=== PATIENT | male | born 1960 | race Caucasian/White ===

== ENCOUNTER 2020-06-08 08:35 | Day surgery (SDC) | payer OTHER ==
[~2020-06-08 08:35] MED LIST: Lactated Ringers 1,000 ML IV SCH; Lidocaine 2% 5 ML SDV ONE; Midazolam 1 MG/ML 2 ML SDV ONE; Propofol 200 MG/20 ML SDV ONE; fentaNYL 100 MCG/2 ML SDV ONE
--- NOTE | 2020-06-08 09:17 | PCM.PREANE ---
Preanesthetic Assessment - Anesthesia/Transfusion/Family Hx Anesthesia History: Prior Anesthesia Without Reaction Family History of Anesthesia Reaction: No Transfusion History: No Prior Transfusion(s) Intubation History: Unknown - Review of Systems General: No Symptoms Pulmonary: No Symptoms Cardiovascular: No Symptoms Gastrointestinal: Abdominal Pain, Other (change in bowel habbits) Neurological: No Symptoms Other: Reports: None - Physical Assessment Vital Signs: Last Vital Signs Temp 36.3 C 06/08/20 08:47 Pulse 62 06/08/20 08:47 Resp 16 06/08/20 08:47 BP 178/81 H 06/08/20 08:47 Pulse Ox 98 06/08/20 08:47 Height: 6 ft Weight: 82.1 kg ASA Class: 2 Mental Status: Alert & Oriented x3 Airway Class: Mallampati = 2 Dentition: Reports: Normal Dentition Thyro-Mental Finger Breadths: 3 Mouth Opening Finger Breadths: 3 ROM/Head Extension: Full Lungs: Clear to Auscultation, Normal Respiratory Effort Cardiovascular: Regular Rate, Regular Rhythm - Allergies Allergies/Adverse Reactions: Allergies Allergy/AdvReac Type Severity Reaction Status Date / Time No Known Allergies Allergy Verified 06/02/20 10:32 - Blood Blood Available: No - Anesthesia Plan Pre-Op Medication Ordered: None - Acknowledgements Anesthesia Type Planned: MAC Pt an Appropriate Candidate for the Planned Anesthesia: Yes Alternatives and Risks of Anesthesia Discussed w Pt/Guardian: Yes Pt/Guardian Understands and Agrees with Anesthesia Plan: Yes PreAnesthesia Questionnaire Other HEENT History: wears glasses, left vitreous detachment Cardiovascular History: Reports: None Respiratory History: Reports: None Gastrointestinal History: Reports: Other (See Below) Other Gastrointestinal History: chronic epigastric pain Genitourinary History: Reports: None Musculoskeletal History: Reports: Back Pain, Chronic Neurological History: Reports: None Psychiatric History: Reports: None Endocrine/Metabolic History: Reports: None Hematologic History: Reports: None Immunologic History: Reports: None Oncologic (Cancer) History: Reports: None Dermatologic History: Reports: None - Infectious Disease History Infectious Disease History: Reports: None - Past Surgical History Head Surgeries/Procedures: Reports: None HEENT Surgical History: Reports: None Cardiovascular Surgical History: Reports: None Respiratory Surgical History: Reports: None GI Surgical History: Reports: Colonoscopy (many years ago) Male Surgical History: Reports: Other (See Below) Other Male Surgeries/Procedures: orchiectomy for testicular cancer Endocrine Surgical History: Reports: None Neurological Surgical History: Reports: C-Spine Other Neurological Surgeries/Procedures: cervical fusion (ACDF) Musculoskeletal Surgical History: Reports: None Oncologic Surgical History: Reports: None Dermatological Surgical History: Reports: None - SUBSTANCE USE Tobacco Use Status *Q: Current Every Day Tobacco User (1/2 ppd) Tobacco Use Within Last Twelve Months: Cigarettes Recreational Drug Use History: No - HOME MEDS Home Medications: Home Meds Ibuprofen 400 mg PO ASDIRECTED PRN 06/02/20 [History] Sildenafil Citrate 100 mg PO ASDIRECTED PRN 06/02/20 [History] - CURRENT (IN HOUSE) MEDS Current Meds: Current Medications Lactated Ringer's (Ringers, Lactated) 1,000 mls @ 125 mls/hr IV ASDIRECTED BRANDT Last Admin: 06/08/20 09:00 Dose: 125 mls/hr Documented by: Discontinued Medications Fentanyl (Sublimaze) Confirm Administered Dose 100 mcg .ROUTE .STK-MED ONE Stop: 06/08/20 07:08 Lidocaine (Xylocaine-Mpf 2%) Confirm Administered Dose 5 ml .ROUTE .STK-MED ONE Stop: 06/08/20 07:08 Midazolam HCl (Versed 1 Mg/Ml) Confirm Administered Dose 2 mg .ROUTE .STK-MED ONE Stop: 06/08/20 07:08 Propofol (Diprivan 20 Ml) Confirm Administered Dose 400 mg .ROUTE .STK-MED ONE Stop: 06/08/20 07:08
[2020-06-08] MEDS ORDERED: Glycopyrrolate 0.2 MG/ML SDV ONE ×2 (10:35→10:44)
[2020-06-08] MEDS ORDERED: Propofol 200 MG/20 ML SDV ONE (10:55)
--- NOTE | 2020-06-08 11:43 | PCM.OPNOTE ---
- General Post-Op/Procedure Note Date of Surgery/Procedure: 06/08/20 Operative Procedure(s): egd w bx and colonoscopy w snare polypectomy Findings: see [id number] Pre Op Diagnosis: abd pain and change in bowel habits Post-Op Diagnosis: Same Anesthesia Technique: Moderate Sedation Primary Surgeon: Cheng James Pathology: 1) sessile polyps 2 - 3 mm at distance 40cm and 60cm when scope went in; pedunculated 5 mm polyp at 40cm when scope went in 2) random colon bx 3) egd bx Complications: None Condition: Good
--- NOTE | 2020-06-08 11:56 | PCM.POSTAN ---
POST ANESTHESIA ASSESSMENT - MENTAL STATUS Mental Status: Alert, Oriented - VITAL SIGNS Vital Signs: Last Vital Signs Temp 36.3 C 06/08/20 08:47 Pulse 52 L 06/08/20 11:50 Resp 15 06/08/20 11:50 BP 102/63 06/08/20 11:50 Pulse Ox 98 06/08/20 11:50 - RESPIRATORY Respiratory Status: Respiratory Rate WNL, Airway Patent, O2 Saturation Stable - CARDIOVASCULAR CV Status: Pulse Rate WNL, Blood Pressure Stable - GASTROINTESTINAL GI Status: No Symptoms - PAIN Pain Score: 0 - POST OP HYDRATION Hydration Status: Adequate & Stable - OBSERVATIONS Free Text/Narrative:: No anesthesia problems
--- NOTE | 2020-06-08 12:08 | PCM48HPAN ---
Post Anesthesia Note - EVALUATION WITHIN 48HRS OF ANESTHETIC Vital Signs in Normal Range: Yes Patient Participated in Evaluation: Yes Respiratory Function Stable: Yes Airway Patent: Yes Cardiovascular Function Stable: Yes Hydration Status Stable: Yes Pain Control Satisfactory: Yes Nausea and Vomiting Control Satisfactory: Yes Mental Status Recovered: Yes Vital Signs: Last Vital Signs Temp 36.3 C 06/08/20 11:57 Pulse 53 L 06/08/20 11:57 Resp 14 06/08/20 11:57 BP 109/76 06/08/20 11:57 Pulse Ox 97 06/08/20 11:57 - COMMENTS/OBSERVATIONS Free Text/Narrative:: No anesthesia problems
--- NOTE | 2020-06-08 18:45 | OR ---
SURGEON: Cheng James MD DATE OF PROCEDURE: 06/08/2020 PREOPERATIVE DIAGNOSES: Abdominal pain and change in bowel habit. PROCEDURES PERFORMED: 1. Esophagogastroduodenoscopy with biopsy. 2. Colonoscopy with snare polypectomy. DESCRIPTION OF PROCEDURE: Procedure #1: EGD: The patient was taken to the endoscopy room, and with the CORD MAKER, Diprivan was administered. A well-lubricated EGD scope was gently inserted through the oropharynx, down the esophagus, passing through the gastroesophageal junction, into the stomach. The mucosa was examined upon the passage. Any etiology will be noted. Once in the stomach, we continued to advance to the distal antrum, passed through the pylorus into the second portion of the duodenum. Again, the mucosa was examined for any abnormality and etiology. The scope was then retrieved back to the stomach and then retroflexed to look at the fundus of the stomach. If a biopsy was indicated, we will biopsy the antrum, body, and gastroesophageal junction. The air will be sucked out while the scope is retrieved to reduce the patient's discomfort. The patient tolerated the procedure well. There were no intraoperative complications. Dr. James was present through the whole procedure. Prior to surgery, a time-out had been called, the patient identified, procedure identified and antibiotic administered. Procedure #2: The patient was taken to the endoscopy room. A time out was called, patient identified, and procedure identified. Diprivan was then administrated. Patient went from awake to sleep, hearing doctor talking or door closing is normal. Perineum inspection and digital examination were then performed. A well- lubricated colonoscope was gently inserted through the rectum, advanced past the rectosigmoid junction, the descending colon, splenic flexure, transverse colon, hepatic flexure, ascending colon, arrived to the cecum. Cecum was identified as dictated in the finding. Then the scope was carefully withdrawn while attention was paid to the mucosal surface for any abnormality. Air will be sucked out during the scope withdrawal. At the rectum, retroflexed to examine any rectal diseases, fistula or hemorrhoids. During mucosal examination, abnormality or polyp encountered. Using snare equipment, the abnormality or the polyp was then snared off using electrocautery. The Patient tolerated procedure well. There were no intraoperative complications, and Dr. James was present throughout the whole procedure. EGD DIAGNOSIS: Acid reflux. COLONOSCOPY DIAGNOSES: Colon polyp and diverticulosis. FINDINGS: EGD Findings: 1. The patient is easily sedated with CORD MAKER on Diprivan. The patient is soundly snoring. 2. Oropharynx and proximal esophagus are free of disease and GE junction at distance of 42 cm, shows mild salmon-colored change consistent with mild acid reflux. Stomach rugae is normal in appearance. Antrum looks fine. Duodenum looks grossly normal. Retroflexed look at the fundus of the stomach, there is no hiatal hernia. Biopsy done at antrum, body, GE junction at 40 and sucked out the gas while scope pulling out. During the whole study, there is no blood, ulcer, food particle, or bile observed. Colonoscopy Findings: 1. The patient is easily sedated with CORD MAKER on Diprivan. The patient is soundly snoring. 2. Bowel prep is average with some liquid stool. No semi-formed stool or stool ball. 3. Colon is rather straightforward. Cecum indicated by ileocecal fold, one-to- one indentation, appendiceal orifice. ScopeGuide is pointing south. Mucosa examined upon scope pulling out and the patient has 2 sessile polyps and 1 pedunculated polyp. The 2 sessile polyps about 2 to 3 mm, very small at distance 40 and distance 60 cm when the scope go in. It was removed with cold biopsy forceps. At distance 40, there is a pedunculated polyp. It was snared with polypectomy and captured and sent for pathology. The polyp itself is about 5 mm. The patient also has diverticulosis in the left colon, mild, and no signs or symptoms of diverticulitis. No other mass, growth, inflammation, stricture, ulceration, AV malformation; none of those. Random biopsy was performed for abdominal pain. The patient has some mild internal hemorrhoids. The patient would benefit from repeat colonoscopy after the pathology of the polyp and random biopsy. KRISTOPHER / RUTH /[id number]
== END 2020-06-08 12:15 | disposition home or self-care (01) ==
LOC: MW.SDS 08:35
PROVIDERS: ATTEND Surgery
DX: D12.6 Benign neoplasm of colon, unspecified (principal); K29.50 Unspecified chronic gastritis without bleeding; K20.90 Esophagitis, unspecified without bleeding; K57.30 Diverticulosis of large intestine without perforation or abscess without bleeding; F17.210 Nicotine dependence, cigarettes, uncomplicated; Z79.899 Other long term (current) drug therapy; Z98.890 Other specified postprocedural states
CPT/HCPCS: 43239; 45380; J2001; J2250; J2704; J3010; J3490; J7120; 00813; 45385